=== PATIENT | female | born 1980 | race Two or more races ===

== ENCOUNTER 2020-12-20 10:05 | Emergency (ER) | payer BC ==
[2020-12-20 10:42] VITALS: BMI 28.7
[2020-12-20] MEDS ORDERED: FAMOTIDINE 20 MG/50 ML IVPB 20 MG/50 ML MG IVPB ONE ×2 (11:10→11:28)
[2020-12-20] MEDS ORDERED: SODIUM CHLORIDE 1,000 ML IV STA (11:10)
[2020-12-20] MEDS ORDERED: ACETAMINOPHEN 1000 MG/100 ML VIAL (NON FORMULARY) IVPB ONE (11:10)
[2020-12-20] MEDS ORDERED: ACETAMINOPHEN INJECTION 100 ML IVPB ONE (11:28)
[2020-12-20 11:32] LABS: BASO % 0.5 % (0-2.0); EOS % 0.1 % (0-4.5); HEMATOCRIT 36.1 % (32.4-45.2); HEMOGLOBIN 12.1 GM/dL (10.7-15.3); LYMPH % 10.9 % (8-40); MCH 28.6 pg (25.7-33.7); MCHC 33.6 g/dl (32.0-36.0); MEAN CELL VOLUME 85.2 fl (80-96); MEAN PLT VOLUME 10.1 fl (7.5-11.1); MONO % 6.2 % (3.8-10.2); NEUT % 82.3 % (42.8-82.8); PLATELET COUNT 280 K/MM3 (134-434); RBC 4.24 M/mm3 (3.60-5.2); RDW 14.3 % (11.6-15.6); WHITE BLOOD COUNT 11.1 K/mm3 (4.0-10.0)
[2020-12-20 11:39] LABS: INR 1.08 (0.83-1.09)
[2020-12-20 11:42] LABS: ACTIVATED PTT 32.9 SECONDS (25.2-36.5); EPI CELLS >36 /uL (0-25.1); HYALINE CASTS 1 /uL (0-3.1); PH,URINE 5.5 (5.0-8.0); URINE APPEARANCE CLOUDY; URINE BACTERIA 1488 /uL (0-1359); URINE BILIRUBIN NEGATIVE (NEGATIVE); URINE COLOR YELLOW; URINE GLUCOSE (UA) NEGATIVE (NEGATIVE); URINE KETONE NEGATIVE (NEGATIVE); URINE LEUK ESTERASE TRACE (NEGATIVE); URINE NITRITE NEGATIVE (NEGATIVE); URINE PROTEIN NEGATIVE (NEGATIVE); URINE UROBILINOGEN 0.2 mg/dL (0.2-1.0); URINE WBC 63 /uL (0-25.8)
[2020-12-20 11:59] LABS: CALCIUM 9.6 mg/dL (8.5-10.1)
[2020-12-20 12:00] LABS: ALBUMIN 3.7 g/dl (3.4-5.0)
[2020-12-20 12:03] LABS: CREATININE 0.8 mg/dL (0.55-1.3)
[2020-12-20 12:04] LABS: BILIRUBIN,TOTAL 0.4 mg/dL (0.2-1); TOT PROT 7.8 g/dl (6.4-8.2)
[2020-12-20 13:43] LABS: URINE RBC 25.1 /uL (0-23.9)
[2020-12-20 13:55] VITALS: BP 136/87; PULSE 91; TEMP 98.8
[2020-12-20] MEDS ORDERED: CEFTRIAXONE 1 GM in DEXTROSE 5%-WATER - 100 ML IVPB ONE (15:10)
[2020-12-20] MEDS ORDERED: CEFTRIAXONE 1 GM/50 ML BAG ONE (15:20)
== END 2020-12-20 16:03 | disposition home or self-care (01) ==
LOC: JER 10:05
PROC: 3E0333Z Introduction of Anti-inflammatory into Peripheral Vein, Percutaneous Approach (ICD-10-PCS; principal; 2020-12-20)
PROC: 3E03329 Introduction of Other Anti-infective into Peripheral Vein, Percutaneous Approach (ICD-10-PCS; 2020-12-20)
PROC: 3E033GC Introduction of Other Therapeutic Substance into Peripheral Vein, Percutaneous Approach (ICD-10-PCS; 2020-12-20)
PROC: 3E0337Z Introduction of Electrolytic and Water Balance Substance into Peripheral Vein, Percutaneous Approach (ICD-10-PCS; 2020-12-20)
DX: R50.9 Fever, unspecified (principal); R10.30 Lower abdominal pain, unspecified; N30.00 Acute cystitis without hematuria; Z11.52 Encounter for screening for COVID-19
CPT/HCPCS: 36415; 74177-TC; 76830-TC; 80053; 81003; 83605; 83690; 84703; 85025; 85610; 85730; 87040; 87086; 87804; 99285-25; C9803; J0131; Q9967; U0003; U0005